=== PATIENT | male | born 1985 | race Two or more races ===

== ENCOUNTER 2021-11-03 09:57 | Inpatient (IN) | payer BC ==
[2021-11-03 10:32] LABS: Basophils # (A) 0.1 k/uL (0-0.2); Basophils % (A) 0 %; Eosinophils # (A) 0.1 k/uL (0-0.7); Eosinophils % (A) 1 %; HCT 45.9 % (39.0-53.0); HGB 16.2 gm/dL (13.0-17.5); Lymphocytes # (A) 1.3 k/uL (1.0-4.8); Lymphocytes % (A) 6 %; MCH 30.7 pg (25.0-35.0); MCHC 35.4 g/dL (31.0-37.0); MCV 86.9 fL (80.0-100.0); Mean Platelet Volume 7.4; Monocytes # (A) 1.5 k/uL (0-1.0); Monocytes % (A) 7 %; Neutrophils # (A) 18.3 k/uL (1.3-7.7); Neutrophils % (A) 86 %; Platelet Count 298 k/uL (150-450); RBC 5.28 m/uL (4.30-5.90); RDW 11.7 % (11.5-15.5); WBC 21.4 k/uL (3.8-10.6)
--- NOTE | 2021-11-03 10:33 | ED ---
Abdominal Pain HPI - General Chief Complaint: Abdominal Pain Stated Complaint: Lower Rt Abd Pain Time Seen by Provider: 11/03/21 10:01 Source: patient, RN notes reviewed Mode of arrival: EMS Limitations: no limitations - History of Present Illness Initial Comments: This a 36-year-old male presents emergency department with chief complaint of right lower quadrant abdominal pain. Patient states pain started last have gradually worsened. Patient states does radiate to his side and down. No dysuria no hematuria. No history kidney stones and in no prior abdominal surgeries slight nausea no vomiting diarrhea constipation. - Related Data Home Medications Medication Instructions Recorded Confirmed Acetaminophen Tab [Tylenol Tab] 1,000 mg PO Q6HR PRN 11/03/21 11/03/21 Allergies Allergy/AdvReac Type Severity Reaction Status Date / Time Milk Containing Products AdvReac Nausea & Verified 11/03/21 11:39 [Dairy] Vomiting & Diarrhea Review of Systems ROS Statement: Those systems with pertinent positive or pertinent negative responses have been documented in the HPI. ROS Other: All systems not noted in ROS Statement are negative. Past Medical History Past Medical History: No Reported History History of Any Multi-Drug Resistant Organisms: None Reported Past Surgical History: No Surgical Hx Reported Smoking Status: Never smoker Past Alcohol Use History: Occasional Past Drug Use History: None Reported General Exam Limitations: no limitations General appearance: alert, in no apparent distress Head exam: Present: atraumatic, normocephalic, normal inspection Neck exam: Present: normal inspection. Absent: tenderness, meningismus, lymphadenopathy Respiratory exam: Present: normal lung sounds bilaterally. Absent: respiratory distress, wheezes, rales, rhonchi, stridor Cardiovascular Exam: Present: regular rate, normal rhythm, normal heart sounds. Absent: systolic murmur, diastolic murmur, rubs, gallop, clicks GI/Abdominal exam: Present: soft, tenderness (Right lower quadrant), normal bowel sounds. Absent: distended, guarding, rebound, rigid Back exam: Absent: CVA tenderness (R), CVA tenderness (L) Neurological exam: Present: alert Skin exam: Present: warm, dry, intact, normal color. Absent: rash Course Vital Signs 11/03/21 10:01 Temperature 98.2 F Pulse Rate 70 Respiratory 18 Rate Blood Pressure 108/67 O2 Sat by Pulse 100 Oximetry Medical Decision Making - Medical Decision Making Patient has acute appendicitis. Patient was started on Zosyn patient will be admitted to Dr. Palmer - Lab Data Result diagrams: 11/03/21 10:20 11/03/21 10:20 Lab Results 11/03/21 11/03/21 11/03/21 Range/Units 10:20 10:20 10:20 WBC 21.4 H (3.8-10.6) k/uL RBC 5.28 (4.30-5.90) m/uL Hgb 16.2 (13.0-17.5) gm/dL Hct 45.9 (39.0-53.0) % MCV 86.9 (80.0-100.0) fL MCH 30.7 (25.0-35.0) pg MCHC 35.4 (31.0-37.0) g/dL RDW 11.7 (11.5-15.5) % Plt Count 298 (150-450) k/uL MPV 7.4 Neutrophils % 86 % Lymphocytes % 6 % Monocytes % 7 % Eosinophils % 1 % Basophils % 0 % Neutrophils # 18.3 H (1.3-7.7) k/uL Lymphocytes # 1.3 (1.0-4.8) k/uL Monocytes # 1.5 H (0-1.0) k/uL Eosinophils # 0.1 (0-0.7) k/uL Basophils # 0.1 (0-0.2) k/uL Sodium 138 (137-145) mmol/L Potassium 4.0 (3.5-5.1) mmol/L Chloride 102 (98-107) mmol/L Carbon Dioxide 23 (22-30) mmol/L Anion Gap 13 mmol/L BUN 17 (9-20) mg/dL Creatinine 0.91 (0.66-1.25) mg/dL Est GFR (CKD-EPI)AfAm >90 (>60 ml/min/1.73 sqM) Est GFR (CKD-EPI)NonAf >90 (>60 ml/min/1.73 sqM) Glucose 163 H (74-99) mg/dL Lactic Ac Sepsis Rflx Plasma Lactic Acid Anastacio 2.3 H* (0.7-2.0) mmol/L Calcium 9.5 (8.4-10.2) mg/dL Total Bilirubin 1.0 (0.2-1.3) mg/dL AST 27 (17-59) U/L ALT 36 (4-49) U/L Alkaline Phosphatase 80 (38-126) U/L Total Protein 8.0 (6.3-8.2) g/dL Albumin 4.7 (3.5-5.0) g/dL Amylase 54 (30-110) U/L Lipase 31 (23-300) U/L 11/03/21 Range/Units 10:47 WBC (3.8-10.6) k/uL RBC (4.30-5.90) m/uL Hgb (13.0-17.5) gm/dL Hct (39.0-53.0) % MCV (80.0-100.0) fL MCH (25.0-35.0) pg MCHC (31.0-37.0) g/dL RDW (11.5-15.5) % Plt Count (150-450) k/uL MPV Neutrophils % % Lymphocytes % % Monocytes % % Eosinophils % % Basophils % % Neutrophils # (1.3-7.7) k/uL Lymphocytes # (1.0-4.8) k/uL Monocytes # (0-1.0) k/uL Eosinophils # (0-0.7) k/uL Basophils # (0-0.2) k/uL Sodium (137-145) mmol/L Potassium (3.5-5.1) mmol/L Chloride (98-107) mmol/L Carbon Dioxide (22-30) mmol/L Anion Gap mmol/L BUN (9-20) mg/dL Creatinine (0.66-1.25) mg/dL Est GFR (CKD-EPI)AfAm (>60 ml/min/1.73 sqM) Est GFR (CKD-EPI)NonAf (>60 ml/min/1.73 sqM) Glucose (74-99) mg/dL Lactic Ac Sepsis Rflx Y Plasma Lactic Acid Anastacio (0.7-2.0) mmol/L Calcium (8.4-10.2) mg/dL Total Bilirubin (0.2-1.3) mg/dL AST (17-59) U/L ALT (4-49) U/L Alkaline Phosphatase (38-126) U/L Total Protein (6.3-8.2) g/dL Albumin (3.5-5.0) g/dL Amylase (30-110) U/L Lipase (23-300) U/L Disposition Clinical Impression: Acute appendicitis Disposition: ADMITTED IP TO THIS HOSP Condition: Fair Referrals: None,Stated [Primary Care Provider] - 1-2 days
[2021-11-03 10:39] LABS: ALT 36 U/L (4-49); AST 27 U/L (17-59); African American GFR (CKD) >90 (>60 ml/min/1.73 sqM); Albumin 4.7 g/dL (3.5-5.0); Alkaline Phosphatase 80 U/L (38-126); Amylase 54 U/L (30-110); Anion Gap 13 mmol/L; Blood Urea Nitrogen 17 mg/dL (9-20); Calcium 9.5 mg/dL (8.4-10.2); Carbon Dioxide 23 mmol/L (22-30); Chloride 102 mmol/L (98-107); Glucose 163 mg/dL (74-99); Lipase 31 U/L (23-300); Non-African American GFR(CKD) >90 (>60 ml/min/1.73 sqM); Sodium 138 mmol/L (137-145)
[2021-11-03] MEDS ORDERED: HYDROmorphone 0.5 MG/0.5 ML SYRINGE IVP STA ×2 (10:58→12:53)
[2021-11-03] MEDS ORDERED: ONDANSETRON 4 MG/2 ML VIAL IVP STA (10:58)
--- NOTE | 2021-11-03 12:27 | CT ---
EXAMINATION TYPE: CT abdomen pelvis w con DATE OF EXAM: 11/03/2021 COMPARISON: HISTORY: Lowert right abdomen pain CT DLP: 1235.9 mGycm CONTRAST: CT scan of the abdomen and pelvis is performed without Oral Contrast and with IV Contrast, patient in jected with 100 ml mL of Isovue 300. FINDINGS: LUNG BASES-: No visible nodule. No infiltrate. LIVER/GB: No calcified gallstones. No space occupying hepatic lesion. Biliary tree is of normal ca liber. PANCREAS: No inflammation. No distinct mass. SPLEEN: No splenic enlargement. No lesion seen. ADRENALS: No nodule. No thickening. KIDNEYS/BLADDER: No hydronephrosis. No nephrolithiasis. No distinct renal mass. Urinary bladder g rossly unremarkable. BOWEL: There is thickening of the appendix with the appendicoliths noted. There is surrounding inflam matory change without rupture or abscess. The findings are compatible with acute appendicitis. Mild r eactive small bowel ileus noted. No evidence for free air. Large bowel is otherwise of normal caliber . GENITAL ORGANS: No gross abnormality. LYMPH NODES: No greater than 1cm abdominal or pelvic lymph nodes are appreciated. AORTA: No significant abnormality. OSSEOUS STRUCTURES: No significant abnormality is seen. OTHER: No significant additional abnormality is seen. IMPRESSION: 1. Uncomplicated acute appendicitis.
[2021-11-03] MEDS ORDERED: PIPERACILLIN-TAZOBACTAM 3.375 GM in SODIUM CHLORIDE 0.9% 100 ML IVPB STA (12:53)
[2021-11-03] MEDS ORDERED: NALOXONE 0.4 MG/ML 1 ML VIAL IV PRN ×2 (12:55→17:05)
[2021-11-03] MEDS ORDERED: ONDANSETRON 4 MG/2 ML VIAL IVP PRN ×2 (12:55→17:05)
[2021-11-03] MEDS ORDERED: ACETAMINOPHEN IV (For NPO) 1,000 MG in EMPTY BAG 1 BAG IVPB STA (13:01)
[2021-11-03] MEDS: SODIUM CHLORIDE 0.9% 1,000 ML IV SCH (13:11)
--- NOTE | 2021-11-03 16:29 | P.GSHP ---
History of Present Illness H&P Date: 11/03/21 Chief Complaint: Right lower quadrant pain This is a 36-year-old male with complaints of right lower quadrant abdominal pain. Patient's emergency room evidence acute appendicitis. Past Medical History Past Medical History: No Reported History History of Any Multi-Drug Resistant Organisms: None Reported Past Surgical History: No Surgical Hx Reported Smoking Status: Never smoker Past Alcohol Use History: Occasional Past Drug Use History: None Reported Medications and Allergies Home Medications Medication Instructions Recorded Confirmed Type Acetaminophen Tab [Tylenol Tab] 1,000 mg PO Q6HR PRN 11/03/21 11/03/21 History Allergies Allergy/AdvReac Type Severity Reaction Status Date / Time Milk Containing Products AdvReac Nausea & Verified 11/03/21 11:39 [Dairy] Vomiting & Diarrhea Surgical - Exam Vital Signs Temp Pulse Resp BP Pulse Ox 98.2 F 70 18 108/67 100 11/03/21 10:01 11/03/21 10:01 11/03/21 10:01 11/03/21 10:01 11/03/21 10:01 - General well developed, well nourished, no distress - Eyes PERRL - ENT normal pinna - Neck no masses - Respiratory normal expansion - Cardiovascular Rhythm: regular - Abdomen Marked tenderness right lower quadrant Abdomen: soft Results - Labs 11/03/21 10:20 11/03/21 10:20 Abnormal Lab Results - Last 24 Hours (Table) 11/03/21 11/03/21 11/03/21 Range/Units 10:20 10:20 10:20 WBC 21.4 H (3.8-10.6) k/uL Neutrophils # 18.3 H (1.3-7.7) k/uL Monocytes # 1.5 H (0-1.0) k/uL Glucose 163 H (74-99) mg/dL Plasma Lactic Acid Anastacio 2.3 H* (0.7-2.0) mmol/L 11/03/21 Range/Units 12:58 WBC (3.8-10.6) k/uL Neutrophils # (1.3-7.7) k/uL Monocytes # (0-1.0) k/uL Glucose (74-99) mg/dL Plasma Lactic Acid Anastacio 2.7 H* (0.7-2.0) mmol/L Diabetes panel 11/03/21 Range/Units 10:20 Sodium 138 (137-145) mmol/L Potassium 4.0 (3.5-5.1) mmol/L Chloride 102 (98-107) mmol/L Carbon Dioxide 23 (22-30) mmol/L BUN 17 (9-20) mg/dL Creatinine 0.91 (0.66-1.25) mg/dL Glucose 163 H (74-99) mg/dL Calcium 9.5 (8.4-10.2) mg/dL AST 27 (17-59) U/L ALT 36 (4-49) U/L Alkaline Phosphatase 80 (38-126) U/L Total Protein 8.0 (6.3-8.2) g/dL Albumin 4.7 (3.5-5.0) g/dL Calcium panel 11/03/21 Range/Units 10:20 Calcium 9.5 (8.4-10.2) mg/dL Albumin 4.7 (3.5-5.0) g/dL Pituitary panel 11/03/21 Range/Units 10:20 Sodium 138 (137-145) mmol/L Potassium 4.0 (3.5-5.1) mmol/L Chloride 102 (98-107) mmol/L Carbon Dioxide 23 (22-30) mmol/L BUN 17 (9-20) mg/dL Creatinine 0.91 (0.66-1.25) mg/dL Glucose 163 H (74-99) mg/dL Calcium 9.5 (8.4-10.2) mg/dL Adrenal panel 11/03/21 Range/Units 10:20 Sodium 138 (137-145) mmol/L Potassium 4.0 (3.5-5.1) mmol/L Chloride 102 (98-107) mmol/L Carbon Dioxide 23 (22-30) mmol/L BUN 17 (9-20) mg/dL Creatinine 0.91 (0.66-1.25) mg/dL Glucose 163 H (74-99) mg/dL Calcium 9.5 (8.4-10.2) mg/dL Total Bilirubin 1.0 (0.2-1.3) mg/dL AST 27 (17-59) U/L ALT 36 (4-49) U/L Alkaline Phosphatase 80 (38-126) U/L Total Protein 8.0 (6.3-8.2) g/dL Albumin 4.7 (3.5-5.0) g/dL Assessment and Plan Assessment: Acute appendicitis. We'll perform laparoscopic appendectomy
[2021-11-03] MEDS ORDERED: KETOROLAC 15 MG/ML 1 ML VIAL ONE (16:30)
[2021-11-03] MEDS ORDERED: GLYCOPYRROLATE 0.2 MG/ML 2 ML VIAL ONE (16:30)
[2021-11-03] MEDS ORDERED: fentaNYL (PF) 50 MCG/ML 2 ML AMP ONE (16:30)
[2021-11-03] MEDS ORDERED: ONDANSETRON 4 MG/2 ML VIAL ONE (16:30)
[2021-11-03] MEDS ORDERED: IV FLUID CONTINUATION 1,000 ML IV ONE (16:30)
[2021-11-03] MEDS ORDERED: PROPOFOL 10 MG/ML 20 ML VIAL IV ONE (16:30)
[2021-11-03] MEDS ORDERED: MIDAZOLAM 2 MG/2 ML VIAL ONE (16:30)
[2021-11-03] MEDS ORDERED: SUCCINYLCHOLINE CHLORIDE 100 MG/5 ML SYR IV ONE (16:30)
[2021-11-03] MEDS ORDERED: LIDOCAINE 1% INJ 10MG/ML (20 ML MDV) ONE (16:30)
[2021-11-03] MEDS ORDERED: NEOSTIGMINE 1 MG/ML 10 ML VIAL ONE (16:30)
[2021-11-03] MEDS ORDERED: ROCURONIUM 10 MG/ML (5 ML VIAL) IV ONE (16:30)
[2021-11-03] MEDS ORDERED: DEXAMETHASONE SOD PHOSPHATE 10 MG/ML 1 ML VIAL ONE (16:30)
[2021-11-03] MEDS ORDERED: BUPIVACAIN-EPI 0.25%-1:200,000 30 ML VIAL SQ ONE ×2 (16:41→16:49)
[2021-11-03] MEDS ORDERED: LACTATED RINGERS 1,000 ML IV ONE (17:00)
[2021-11-03] MEDS ORDERED: Acetaminophen-Codeine 300-30mg TAB PO PRN (17:05)
[2021-11-03] MEDS ORDERED: traMADol 50 MG TAB PO PRN (17:05)
--- NOTE | 2021-11-03 17:05 | P.OP ---
Date of Procedure: 11/03/21 Preoperative Diagnosis: Acute appendicitis Postoperative Diagnosis: Acute appendicitis Procedure(s) Performed: Laparoscopic appendectomy Anesthesia: ELISA Surgeon: Armando Handley Estimated Blood Loss (ml): 5 Pathology: other (Appendix) Condition: stable Disposition: PACU Description of Procedure: The patient's placed on the operating table in the supine position. The patient received general anesthesia. The abdomen was prepped and draped in the usual sterile fashion. The skin was anesthetized 1% local Xylocaine at the trocar sites. Using an 11 blade the skin was incised at the umbilicus. The umbilicus was grasped with a Mangham clamp and then a Veress needle was placed into the peritoneal cavity. Position of the Veress needle was confirmed with positive drop test. After adequate insufflation a 5 mm trocar was placed into the peritoneal cavity. The abdomen was further insufflated. And then the laparoscope was placed in the peritoneal cavity. Next a 5 mm trocar was placed in the midline suprapubic position. And then a 10 mm trocar was placed in the midline epigastric position. The patient was rotated with the right side up and in Trendelenburg. The appendix was visualized. The appendix appeared to be inflamed. The appendix was grasped and then using the Harmonic scissors the mesoappendix was divided. A PDS Endoloop was then placed around the base of the appendix. And then the appendix was divided using Harmonic scissors. The appendix was placed into an Endo Catch and brought out through the 10 mm trocar site. The abdomen was irrigated. There is no bleeding seen. The trochars withdrawn. The skin was closed interrupted 3-0 Monocryl suture. Dermabond dressing was applied. Patient was sent to recovery room in stable condition.
[2021-11-03] MEDS: PIPERACILLIN-TAZOBACTAM 3.375 GM in SODIUM CHLORIDE 0.9% 100 ML IVPB SCH (21:21)
[2021-11-03] MEDS: KETOROLAC 30 MG/ML 1 ML VIAL IVP SCH (21:22)
[2021-11-04] MEDS: SODIUM CHLORIDE 0.9% 1,000 ML IV SCH ×2 (01:11→06:01)
[2021-11-04] MEDS: D5-0.45% NACL WITH KCL 20MEQ/L 1,000 ML IV SCH ×3 (01:11→09:56)
[2021-11-04] MEDS: KETOROLAC 30 MG/ML 1 ML VIAL IVP SCH ×4 (01:13→18:51)
[2021-11-04] MEDS: HYDROmorphone 0.5 MG/0.5 ML SYRINGE IVP PRN ×3 (02:25→16:08)
[2021-11-04] MEDS: PIPERACILLIN-TAZOBACTAM 3.375 GM in SODIUM CHLORIDE 0.9% 100 ML IVPB SCH ×3 (05:05→22:11)
[2021-11-04 06:56] LABS: Basophils % (A) 0 %; Eosinophils % (A) 0 %; HCT 45.2 % (39.0-53.0); HGB 15.5 gm/dL (13.0-17.5); Lymphocytes # (A) 1.1 k/uL (1.0-4.8); Lymphocytes % (A) 6 %; MCH 30.3 pg (25.0-35.0); MCHC 34.3 g/dL (31.0-37.0); MCV 88.5 fL (80.0-100.0); Mean Platelet Volume 7.4; Monocytes # (A) 0.8 k/uL (0-1.0); Monocytes % (A) 4 %; Neutrophils # (A) 16.9 k/uL (1.3-7.7); Neutrophils % (A) 89 %; Platelet Count 300 k/uL (150-450); RDW 11.8 % (11.5-15.5)
[2021-11-04] MEDS: ENOXAPARIN 40 MG/0.4 ML SYRINGE SQ SCH (09:56)
--- NOTE | 2021-11-04 11:37 | P.CONS ---
History of Present Illness - Reason for Consult lEUKOCYTOSI - History of Present Illness Patient is a pleasant 36-year-old male's of right lower quadrant abdominal pain is severe along with nausea without any vomiting found to have a appendicitis underwent emergent appendectomy found to have significant purulence patient is presently on antibiotics patient does have leukocytosis patient did pass gas didn't yet patient's abdomen is bit distended patient is an bleeding the hallways pain is fairly well controlled. Did have an episode of vomiting today. REVIEW OF SYSTEMS: CONSTITUTIONAL: No fever, no malaise, no fatigue. HEENT: No recent visual problems or hearing problems. Denied any sore throat. CARDIOVASCULAR: No chest pain, orthopnea, PND, no palpitations, no syncope. PULMONARY: No shortness of breath, no cough, no hemoptysis. GASTROINTESTINAL: As mentioned in HPI NEUROLOGICAL: No headaches, no weakness, no numbness. HEMATOLOGICAL: Denies any bleeding or petechiae. GENITOURINARY: Denies any burning micturition, frequency, or urgency. MUSCULOSKELETAL/RHEUMATOLOGICAL: Denies any joint pain, swelling, or any muscle pain. ENDOCRINE: Denies any polyuria or polydipsia. The rest of the 14-point review of systems is negative. PHYSICAL EXAMINATION: GENERAL: The patient is alert and oriented x3, not in any acute distress. Well developed, well nourished. HEENT: Pupils are round and equally reacting to light. EOMI. No scleral icterus. No conjunctival pallor. Normocephalic, atraumatic. No pharyngeal erythema. No thyromegaly. CARDIOVASCULAR: S1 and S2 present. No murmurs, rubs, or gallops. PULMONARY: Chest is clear to auscultation, no wheezing or crackles. ABDOMEN: Distended sluggish bowel sounds tympanic No palpable organomegaly. MUSCULOSKELETAL: No joint swelling or deformity. EXTREMITIES: No cyanosis, clubbing, or pedal edema. NEUROLOGICAL: Gross neurological examination did not reveal any focal deficits. SKIN: No rashes. Assessment and plan LEULOCYTOSIS: Secondary to appendicitis patient is on Zosyn which can be continued and is an appropriate antibiotic -Acute appendicitis patient is status post appendectomy Doesn't have any other major medical problems continue with antibiotics for now. DVT prophylaxis: As per primary service and not require any DVT prophylaxis as patient examining well Past Medical History Past Medical History: No Reported History History of Any Multi-Drug Resistant Organisms: None Reported Past Surgical History: No Surgical Hx Reported Smoking Status: Never smoker Past Alcohol Use History: Occasional Past Drug Use History: None Reported - Past Family History Father Family Medical History: No Reported History Mother Family Medical History: No Reported History Medications and Allergies Home Medications Medication Instructions Recorded Confirmed Type Acetaminophen Tab [Tylenol Tab] 1,000 mg PO Q6HR PRN 11/03/21 11/03/21 History Allergies Allergy/AdvReac Type Severity Reaction Status Date / Time Milk Containing Products AdvReac Nausea & Verified 11/03/21 18:51 [Dairy] Vomiting & Diarrhea Physical Exam Vitals: Vital Signs Temp Pulse Pulse Pulse Resp BP BP 11/04/21 08:20 97.5 F L 73 18 11/04/21 02:00 98.6 F 69 16 122/83 11/03/21 19:20 88 16 118/75 11/03/21 19:10 87 16 124/80 11/03/21 18:56 95 16 124/83 11/03/21 18:40 92 16 121/84 11/03/21 18:11 98.3 F 95 16 114/76 11/03/21 17:51 88 18 11/03/21 17:36 89 18 11/03/21 17:21 98.9 F 92 18 11/03/21 14:00 87 16 127/75 11/03/21 13:00 99.1 F 89 16 127/83 11/03/21 12:45 93 16 127/80 BP Pulse Ox 11/04/21 08:20 155/88 97 11/04/21 02:00 96 11/03/21 19:20 98 11/03/21 19:10 98 11/03/21 18:56 98 11/03/21 18:40 95 11/03/21 18:11 94 L 11/03/21 17:51 110/62 92 L 11/03/21 17:36 112/66 96 11/03/21 17:21 113/67 99 11/03/21 14:00 96 11/03/21 13:00 98 11/03/21 12:45 99 Intake and Output 11/03/21 11/04/21 11/04/21 22:59 06:59 14:59 Intake Total 1100 Output Total 5 Balance 1095 Intake: IV 1100 Output: Estimated Blood Loss 5 Other: # Voids 1 Results CBC & Chem 7: 11/04/21 06:30 11/03/21 10:20 Labs: Abnormal Lab Results - Last 24 Hours (Table) 11/03/21 11/03/21 11/04/21 Range/Units 12:58 19:01 06:30 WBC 19.0 H (3.8-10.6) k/uL Neutrophils # 16.9 H (1.3-7.7) k/uL Plasma Lactic Acid Anastacio 2.7 H* 2.2 H* (0.7-2.0) mmol/L
[2021-11-04] MEDS ORDERED: ASPIRIN-ACET-CAFF 250-250-65MG 1 EACH TAB PO PRN (11:50)
[2021-11-04] MEDS: SIMETHICONE 80 MG CHEWABLE PO SCH ×3 (12:43→22:10)
[2021-11-04] MEDS: METOCLOPRAMIDE 5 MG/ML 2 ML VIAL IVP SCH ×2 (13:33→18:53)
--- NOTE | 2021-11-04 15:05 | P.PN ---
Subjective Progress Note Date: 11/04/21 CHIEF COMPLAINT: Acute appendicitis HISTORY OF PRESENT ILLNESS: Patient is status post laparoscopic appendectomy. Patient complaining of abdominal pain and bloating. Pain is less than admission pain. He still has not had any flatus or bowel movement. He did have one emesis this morning that was dark brownish in color. Afebrile. WBC 21.4 down to 19. Hemoglobin 15.5 Currently on a clear liquid diet PHYSICAL EXAM: VITAL SIGNS: Reviewed. GENERAL: Well-developed in no acute distress. HEENT: No sclera icterus. Extraocular movements grossly intact. Moist buccal mucosa. Head is atraumatic, normocephalic. ABDOMEN: Soft. Distended. Diffuse tenderness with palpation. Incision sites clean dry and intact. NEUROLOGIC: Alert and oriented. Cranial nerves II through XII grossly intact. ASSESSMENT: 1. Acute appendicitis status post laparoscopic appendectomy 2. Postoperative ileus, unexpected but probable PLAN: -Downgraded diet nothing by mouth except for ice chips -Encourage patient to ambulate -Mylicon chews ordered -Continue antibiotics -Continue IV fluids -Continue pain medication as needed -DVT prophylaxis Lovenox and GI prophylaxis Protonix Physician Wrapper Selector note has been reviewed by physician. Signing provider agrees with the documented findings, assessment, and plan of care. Objective - Vital Signs Vital signs: Vital Signs Temp 97.5 F L 11/04/21 08:20 Pulse 73 11/04/21 08:20 Resp 18 11/04/21 08:20 BP 155/88 11/04/21 08:20 Pulse Ox 97 11/04/21 08:20 Intake & Output 11/03/21 11/04/21 11/04/21 18:59 06:59 18:59 Intake Total 1100 Output Total 5 Balance 1095 Weight 95.254 kg Intake: IV 1100 Output: Estimated Blood Loss 5 Other: # Voids 1 1 - Labs CBC & Chem 7: 11/04/21 06:30 11/03/21 10:20 Labs: Abnormal Lab Results - Last 24 Hours (Table) 11/03/21 11/03/21 11/04/21 Range/Units 12:58 19:01 06:30 WBC 19.0 H (3.8-10.6) k/uL Neutrophils # 16.9 H (1.3-7.7) k/uL Plasma Lactic Acid Anastacio 2.7 H* 2.2 H* (0.7-2.0) mmol/L
[2021-11-04] MEDS: PANTOPRAZOLE 40 MG/10 ML VIAL IVP SCH (16:14)
--- NOTE | 2021-11-04 19:16 | XR ---
EXAMINATION TYPE: XR chest 1V portable DATE OF EXAM: 11/04/2021 COMPARISON: NONE HISTORY: Tube placed TECHNIQUE: 2 views FINDINGS: There is no heart failure. There is some linear density left lung base. There is poor inspi ration. Heart size is fairly normal. There are no hilar masses. There is nasogastric tube in the rafia abhinav fundus. IMPRESSION: There is mild subsegmental atelectasis left lung base. NG tube is in the stomach.
[2021-11-04] MEDS ORDERED: TEMAZEPAM 15 MG CAP PO PRN (23:21)
[2021-11-05] MEDS: KETOROLAC 30 MG/ML 1 ML VIAL IVP SCH ×3 (00:51→12:00)
[2021-11-05] MEDS: METOCLOPRAMIDE 5 MG/ML 2 ML VIAL IVP SCH ×3 (00:51→12:00)
[2021-11-05] MEDS: D5-0.45% NACL WITH KCL 20MEQ/L 1,000 ML IV SCH ×3 (03:48→21:45)
[2021-11-05] MEDS: PIPERACILLIN-TAZOBACTAM 3.375 GM in SODIUM CHLORIDE 0.9% 100 ML IVPB SCH ×4 (03:52→21:41)
[2021-11-05] MEDS: ENOXAPARIN 40 MG/0.4 ML SYRINGE SQ SCH (09:24)
[2021-11-05] MEDS: SIMETHICONE 80 MG CHEWABLE PO SCH ×4 (09:24→21:41)
[2021-11-05] MEDS: PANTOPRAZOLE 40 MG/10 ML VIAL IVP SCH (09:24)
[2021-11-05 09:54] LABS: Basophils % (A) 0 %; Eosinophils % (A) 0 %; HCT 44.1 % (39.0-53.0); HGB 15.1 gm/dL (13.0-17.5); Lymphocytes # (A) 1.2 k/uL (1.0-4.8); Lymphocytes % (A) 7 %; MCH 30.8 pg (25.0-35.0); MCHC 34.1 g/dL (31.0-37.0); MCV 90.4 fL (80.0-100.0); Mean Platelet Volume 7.3; Monocytes # (A) 0.8 k/uL (0-1.0); Monocytes % (A) 5 %; Neutrophils # (A) 14.1 k/uL (1.3-7.7); Neutrophils % (A) 86 %; Platelet Count 325 k/uL (150-450); RBC 4.88 m/uL (4.30-5.90); RDW 12.5 % (11.5-15.5); WBC 16.4 k/uL (3.8-10.6)
--- NOTE | 2021-11-05 13:44 | P.PN ---
Subjective Progress Note Date: 11/05/21 CHIEF COMPLAINT: Acute appendicitis HISTORY OF PRESENT ILLNESS: Patient is status post laparoscopic appendectomy. Patient is being treated for postoperative ileus. NG tube unable to be placed yesterday. Patient had a few episodes of vomiting yesterday. That has now resolved. He has started to have several liquidy bowel movements. Reglan has been discontinued. His overall pain has shown improvement. Afebrile. WBC trending down from 19-16.4 PHYSICAL EXAM: VITAL SIGNS: Reviewed. GENERAL: Well-developed in no acute distress. HEENT: No sclera icterus. Extraocular movements grossly intact. Moist buccal mucosa. Head is atraumatic, normocephalic. ABDOMEN: Soft. Distended. Diffuse tenderness with palpation. Incision sites clean dry and intact. NEUROLOGIC: Alert and oriented. Cranial nerves II through XII grossly intact. ASSESSMENT: 1. Acute appendicitis status post laparoscopic appendectomy 2. Postoperative ileus, unexpected but probable PLAN: -Start clear liquid diet -Discontinue Reglan -Encourage patient to ambulate -Mylicon chews ordered -Continue antibiotics -Continue IV fluids -Continue pain medication as needed -Possible discharge tomorrow if pain is controlled and tolerating diet. -DVT prophylaxis Lovenox and GI prophylaxis Protonix Physician Shag Truck Driver note has been reviewed by physician. Signing provider agrees with the documented findings, assessment, and plan of care. Objective - Vital Signs Vital signs: Vital Signs Temp 98.8 F 11/05/21 08:10 Pulse 80 11/05/21 08:10 Resp 16 11/05/21 08:10 BP 136/85 11/05/21 08:10 Pulse Ox 98 11/05/21 08:10 Intake & Output 11/04/21 11/05/21 11/05/21 18:59 06:59 18:59 Other: Voiding Method Toilet # Voids 2 2 # Bowel Movements 6 - Labs CBC & Chem 7: 11/05/21 08:56 11/03/21 10:20 Labs: Abnormal Lab Results - Last 24 Hours (Table) 11/05/21 Range/Units 08:56 WBC 16.4 H (3.8-10.6) k/uL Neutrophils # 14.1 H (1.3-7.7) k/uL
[2021-11-05] MEDS: HYDROcodone/APAP 5-325MG 1 EACH TAB PO PRN ×2 (14:16→20:35)
--- NOTE | 2021-11-05 15:39 | P.PN ---
Subjective Progress Note Date: 11/05/21 - Reason for Consult Leukocytosis - History of Present Illness Patient is a pleasant 36-year-old male's of right lower quadrant abdominal pain is severe along with nausea without any vomiting found to have a appendicitis underwent emergent appendectomy found to have significant purulence patient is presently on antibiotics patient does have leukocytosis patient did pass gas didn't yet patient's abdomen is bit distended patient is an bleeding the cantrell llways pain is fairly well controlled. Did have an episode of vomiting today. 11/05/2021 Patient is seen and evaluated in follow-up and continues to have some abdominal discomfort and states is passing gas and has had multiple bowel movements status post receiving Reglan and the bowel movements were loose. Patient is started on clear liquids and will monitor for tolerance along with increasing diet as tolerated per surgical recommendations. Patient is afebrile. Patient did have an episode of nausea and vomiting yesterday and none today. Patient has been up and walking the halls multiple times. Labs: White count Blood count trending down at 16.4, hemoglobin is 15.1, platelets are 325 Review of systems: Constitutional: No reports of fatigue, fever, or chills Cardiovascular: No reports of chest pain or palpitations Respiratory: No reports of shortness of breath or cough GI: reports occasional nausea with no reports of further vomiting or nausea noted today, reports passing gas and multiple loose stools : No reports of dysuria or retention Neurovascular: No reports of weakness or numbness All medications have been reviewed Active Medications Acetaminophen/Codeine Phosphate (Acetaminophen-Codeine 300-30mg Tab) 1 each PO Q4HR PRN PRN Reason: Pain Hydrocodone Bitart/Acetaminophen (Hydrocodone/Apap 5-325mg 1 Each Tab) 2 each PO Q6HR PRN PRN Reason: Moderate to Severe Pain Last Admin: 11/05/21 14:16 Dose: 2 each Documented by: Enoxaparin Sodium (Enoxaparin 40 Mg/0.4 Ml Syringe) 40 mg SQ DAILY [facility] Last Admin: 11/05/21 09:24 Dose: 40 mg Documented by: Hydromorphone HCl (Hydromorphone 0.5 Mg/0.5 Ml Syringe) 0.5 mg IVP Q3HR PRN PRN Reason: Moderate Pain Last Admin: 11/04/21 16:08 Dose: 0.5 mg Documented by: Potassium Chloride/Dextrose/Sod Cl (D5%-1/2ns-Kcl 20 Meq/L Iv Solution) 1,000 mls @ 100 mls/hr IV .Q10H [facility] Last Admin: 11/05/21 14:30 Dose: 100 mls/hr Documented by: Piperacillin Sod/Tazobactam (Sod 3.375 gm/ Sodium Chloride) 100 mls @ 25 mls/hr IVPB Q8H [facility] Last Admin: 11/05/21 12:33 Dose: 25 mls/hr Documented by: Ondansetron HCl (Ondansetron 4 Mg/2 Ml Vial) 4 mg IVP Q8HR PRN PRN Reason: Nausea And Vomiting Last Admin: 11/04/21 05:09 Dose: 4 mg Documented by: Ondansetron HCl (Ondansetron 4 Mg/2 Ml Vial) 4 mg IVP Q6HR PRN PRN Reason: Nausea And Vomiting Last Admin: 11/04/21 09:56 Dose: 4 mg Documented by: Pantoprazole Sodium (Pantoprazole 40 Mg/10 Ml Vial) 40 mg IVP DAILY [facility] Last Admin: 11/05/21 09:24 Dose: 40 mg Documented by: Simethicone (Simethicone 80 Mg Chewable) 80 mg PO QID [facility] Last Admin: 11/05/21 14:30 Dose: 80 mg Documented by: Temazepam (Temazepam 15 Mg Cap) 15 mg PO HS PRN PRN Reason: Insomnia Last Admin: 11/05/21 01:04 Dose: 15 mg Documented by: Tramadol HCl (Tramadol 50 Mg Tab) 50 mg PO Q6H PRN PRN Reason: Mild to Moderate Pain Last Admin: 11/05/21 11:11 Dose: 50 mg Documented by: PHYSICAL EXAMINATION: GENERAL: The patient is alert and oriented x3, not in any acute distress. Well developed, well nourished. HEENT: Pupils are round and equally reacting to light. EOMI. No scleral icterus. No conjunctival pallor. Normocephalic, atraumatic. No pharyngeal erythema. No thyromegaly. CARDIOVASCULAR: S1 and S2 present. No murmurs, rubs, or gallops. PULMONARY: Chest is clear to auscultation, no wheezing or crackles. ABDOMEN: Distended, sluggish bowel sounds noted, tympanic No palpable organomegaly. MUSCULOSKELETAL: No joint swelling or deformity. EXTREMITIES: No cyanosis, clubbing, or pedal edema. NEUROLOGICAL: Gross neurological examination did not reveal any focal deficits SKIN: No rashes. Assessment: -Leukocytosis secondary to appendicitis: Patient will be continued on IV antibiotics in the form of Zosyn and white blood count trending down and is currently 16.4 today, the labs ordered -Acute appendicitis patient is status post appendectomy -Possible ileus, and unexpected outcome of surgery -DVT prophylaxis: As per primary service and not require any DVT prophylaxis , encouraged increased ambulation -Full code Plan: Recommend continue with IV antibiotics in the form of Zosyn and monitor white blood count closely with repeat labs in the morning. Encouraged increase activity as tolerated and patient is being started on clear liquids and slowly advance as tolerated. Patient is having gas and multiple bowel movements with questionable ileus and surgical services monitoring closely. Recommend repeat labs in the morning with possible discharge in 24 hours. Will continue to follow along with surgery during hospitalization. Thank you for this consultation. Objective - Vital Signs Vital signs: Vital Signs Temp 98.8 F 11/05/21 08:10 Pulse 80 11/05/21 08:10 Resp 16 11/05/21 08:10 BP 136/85 11/05/21 08:10 Pulse Ox 98 11/05/21 08:10 Intake & Output 11/04/21 11/05/21 11/05/21 18:59 06:59 18:59 Other: Voiding Method Toilet # Voids 2 2 # Bowel Movements 6 - Labs CBC & Chem 7: 11/05/21 08:56 11/03/21 10:20 Labs: Abnormal Lab Results - Last 24 Hours (Table) 11/05/21 Range/Units 08:56 WBC 16.4 H (3.8-10.6) k/uL Neutrophils # 14.1 H (1.3-7.7) k/uL
[2021-11-06] MEDS: HYDROcodone/APAP 5-325MG 1 EACH TAB PO PRN (04:18)
[2021-11-06] MEDS: PIPERACILLIN-TAZOBACTAM 3.375 GM in SODIUM CHLORIDE 0.9% 100 ML IVPB SCH ×3 (04:18→19:50)
[2021-11-06] MEDS: D5-0.45% NACL WITH KCL 20MEQ/L 1,000 ML IV SCH ×2 (04:19→19:51)
[2021-11-06] MEDS: PANTOPRAZOLE 40 MG/10 ML VIAL IVP SCH (08:38)
[2021-11-06] MEDS: SIMETHICONE 80 MG CHEWABLE PO SCH ×4 (08:39→21:04)
[2021-11-06] MEDS: ENOXAPARIN 40 MG/0.4 ML SYRINGE SQ SCH (08:39)
[2021-11-06 09:00] LABS: Basophils % (A) 0 %; Eosinophils # (A) 0.2 k/uL (0-0.7); Eosinophils % (A) 1 %; HCT 43.5 % (39.0-53.0); HGB 14.2 gm/dL (13.0-17.5); Lymphocytes # (A) 1.3 k/uL (1.0-4.8); Lymphocytes % (A) 10 %; MCH 30.9 pg (25.0-35.0); MCHC 32.7 g/dL (31.0-37.0); MCV 94.3 fL (80.0-100.0); Mean Platelet Volume 7.3; Monocytes # (A) 0.9 k/uL (0-1.0); Monocytes % (A) 7 %; Neutrophils % (A) 80 %; Platelet Count 337 k/uL (150-450); RBC 4.62 m/uL (4.30-5.90); RDW 11.8 % (11.5-15.5); WBC 13.7 k/uL (3.8-10.6)
[2021-11-06 09:07] LABS: African American GFR (CKD) >90 (>60 ml/min/1.73 sqM); Anion Gap 12 mmol/L; Blood Urea Nitrogen 22 mg/dL (9-20); Calcium 9.2 mg/dL (8.4-10.2); Carbon Dioxide 22 mmol/L (22-30); Chloride 105 mmol/L (98-107); Glucose 120 mg/dL (74-99); Non-African American GFR(CKD) >90 (>60 ml/min/1.73 sqM); Potassium 4.3 mmol/L (3.5-5.1); Sodium 139 mmol/L (137-145)
--- NOTE | 2021-11-06 14:45 | P.PN ---
Subjective Progress Note Date: 11/06/21 CHIEF COMPLAINT: Acute appendicitis HISTORY OF PRESENT ILLNESS: Patient is status post laparoscopic appendectomy. Patient is being treated for postoperative ileus. Patient is reporting that his pain is showing improvement. He has had multiple bowel movements. Denies any nausea or vomiting. Appetite is still diminished. Afebrile. WBC trending downwards at 13.7 PHYSICAL EXAM: VITAL SIGNS: Reviewed. GENERAL: Well-developed in no acute distress. HEENT: No sclera icterus. Extraocular movements grossly intact. Moist buccal mucosa. Head is atraumatic, normocephalic. ABDOMEN: Soft. Less tender with palpation. Decrease abdominal distention. Incision sites clean dry and intact. NEUROLOGIC: Alert and oriented. Cranial nerves II through XII grossly intact. ASSESSMENT: 1. Acute appendicitis status post laparoscopic appendectomy 2. Postoperative ileus, unexpected but probable PLAN: -Advance to full liquids -Encourage patient to ambulate -Mylicon chews -Continue antibiotics -Continue IV fluids -Continue pain medication as needed -Possible discharge tomorrow -DVT prophylaxis Lovenox and GI prophylaxis Protonix Physician Legal Biller note has been reviewed by physician. Signing provider agrees with the documented findings, assessment, and plan of care. Objective - Vital Signs Vital signs: Vital Signs Temp 98.7 F 11/06/21 14:13 Pulse 74 11/06/21 14:13 Resp 16 11/06/21 14:13 BP 127/88 11/06/21 14:13 Pulse Ox 97 11/06/21 14:13 Intake & Output 11/05/21 11/06/21 11/06/21 18:59 06:59 18:59 Other: Voiding Method Toilet Toilet # Voids 1 2 - Labs CBC & Chem 7: 11/06/21 08:28 11/06/21 08:28 Labs: Abnormal Lab Results - Last 24 Hours (Table) 11/06/21 11/06/21 Range/Units 08:28 08:28 WBC 13.7 H (3.8-10.6) k/uL Neutrophils # 11.0 H (1.3-7.7) k/uL BUN 22 H (9-20) mg/dL Glucose 120 H (74-99) mg/dL
--- NOTE | 2021-11-06 16:16 | P.PN ---
Subjective Progress Note Date: 11/06/21 - Reason for Consult Leukocytosis - History of Present Illness Patient is a pleasant 36-year-old male's of right lower quadrant abdominal pain is severe along with nausea without any vomiting found to have a appendicitis underwent emergent appendectomy found to have significant purulence patient is presently on antibiotics patient does have leukocytosis patient did pass gas didn't yet patient's abdomen is bit distended patient is an bleeding the cantrell llways pain is fairly well controlled. Did have an episode of vomiting today. 11/05/2021 Patient is seen and evaluated in follow-up and continues to have some abdominal discomfort and states is passing gas and has had multiple bowel movements status post receiving Reglan and the bowel movements were loose. Patient is started on clear liquids and will monitor for tolerance along with increasing diet as tolerated per surgical recommendations. Patient is afebrile. Patient did have an episode of nausea and vomiting yesterday and none today. Patient has been up and walking the halls multiple times. 11/06/2021 Patient is seen and evaluated today with no acute overnight issues. Patient is afebrile white blood count is trending down at 13.7, BMP within normal limits. Patient is maintained on IV antibiotics and will repeat labs. Patient continues to have mild abdominal tenderness at the incision site with occasional intermittent abdominal pain although no worse than yesterday. Patient is up multiple times walking the halls and reports to passing gas and continues to have bowel movements. Diet is being advanced to full liquids and will monitor for tolerance. Labs: WBC is 13.7, hemoglobin is working 0.3, platelets are 337, sodium is 139, potassium 4.3, creatinine 0.93, calcium is 9.2. Review of systems: Constitutional: No reports of fatigue, fever, or chills Cardiovascular: No reports of chest pain or palpitations Respiratory: No reports of shortness of breath or cough GI: no reports of nausea with no reports of further vomiting or nausea noted today, reports passing gas and having bowel movements : No reports of dysuria or retention Neurovascular: No reports of weakness or numbness All medications have been reviewed Active Medications Acetaminophen/Codeine Phosphate (Acetaminophen-Codeine 300-30mg Tab) 1 each PO Q4HR PRN PRN Reason: Pain Hydrocodone Bitart/Acetaminophen (Hydrocodone/Apap 5-325mg 1 Each Tab) 2 each PO Q6HR PRN PRN Reason: Moderate to Severe Pain Last Admin: 11/06/21 04:18 Dose: 2 each Documented by: Enoxaparin Sodium (Enoxaparin 40 Mg/0.4 Ml Syringe) 40 mg SQ DAILY [facility] Last Admin: 11/06/21 08:39 Dose: 40 mg Documented by: Hydromorphone HCl (Hydromorphone 0.5 Mg/0.5 Ml Syringe) 0.5 mg IVP Q3HR PRN PRN Reason: Moderate Pain Last Admin: 11/04/21 16:08 Dose: 0.5 mg Documented by: Potassium Chloride/Dextrose/Sod Cl (D5%-1/2ns-Kcl 20 Meq/L Iv Solution) 1,000 mls @ 100 mls/hr IV .Q10H [facility] Last Admin: 11/06/21 04:19 Dose: 100 mls/hr Documented by: Piperacillin Sod/Tazobactam (Sod 3.375 gm/ Sodium Chloride) 100 mls @ 25 mls/hr IVPB Q8H [facility] Last Admin: 11/06/21 13:16 Dose: 25 mls/hr Documented by: Ondansetron HCl (Ondansetron 4 Mg/2 Ml Vial) 4 mg IVP Q8HR PRN PRN Reason: Nausea And Vomiting Last Admin: 11/04/21 05:09 Dose: 4 mg Documented by: Ondansetron HCl (Ondansetron 4 Mg/2 Ml Vial) 4 mg IVP Q6HR PRN PRN Reason: Nausea And Vomiting Last Admin: 11/04/21 09:56 Dose: 4 mg Documented by: Pantoprazole Sodium (Pantoprazole 40 Mg/10 Ml Vial) 40 mg IVP DAILY [facility] Last Admin: 11/06/21 08:38 Dose: 40 mg Documented by: Simethicone (Simethicone 80 Mg Chewable) 80 mg PO QID [facility] Last Admin: 11/06/21 13:17 Dose: 80 mg Documented by: Temazepam (Temazepam 15 Mg Cap) 15 mg PO HS PRN PRN Reason: Insomnia Last Admin: 11/05/21 01:04 Dose: 15 mg Documented by: Tramadol HCl (Tramadol 50 Mg Tab) 50 mg PO Q6H PRN PRN Reason: Mild to Moderate Pain Last Admin: 11/05/21 11:11 Dose: 50 mg Documented by: PHYSICAL EXAMINATION: GENERAL: The patient is alert and oriented x3, not in any acute distress. Well developed, well nourished. HEENT: Pupils are round and equally reacting to light. EOMI. No scleral icterus. No conjunctival pallor. Normocephalic, atraumatic. No pharyngeal erythema. No thyromegaly. CARDIOVASCULAR: S1 and S2 present. No murmurs, rubs, or gallops. PULMONARY: Chest is clear to auscultation, no wheezing or crackles. ABDOMEN: Distended, bowel sounds noted, tympanic No palpable organomegaly. MUSCULOSKELETAL: No joint swelling or deformity. EXTREMITIES: No cyanosis, clubbing, or pedal edema. NEUROLOGICAL: Gross neurological examination did not reveal any focal deficits SKIN: No rashes. Assessment: -Leukocytosis secondary to appendicitis: Patient will be continued on IV antibiotics in the form of Zosyn and white blood count trending down and is currently 13.7 today, repeat labs ordered -Acute appendicitis patient is status post appendectomy -Possible ileus, and unexpected outcome of surgery -DVT prophylaxis: As per primary service and not require any DVT prophylaxis , encouraged increased ambulation -Full code Plan: Recommend continue with IV antibiotics in the form of Zosyn and monitor white blood count closely with repeat labs in the morning. Encouraged increase activity as tolerated and patient has tolerated on clear liquids and being advanced to full liquids for surgery. Patient is having gas and multiple bowel movements with questionable ileus and surgical services monitoring closely. Recommend repeat labs in the morning with possible discharge in 24 hours. Will continue to follow along with surgery during hospitalization. Thank you for this consultation. Objective - Vital Signs Vital signs: Vital Signs Temp 98.6 F 11/06/21 08:35 Pulse 81 11/06/21 08:35 Resp 14 11/06/21 08:35 BP 134/90 11/06/21 08:35 Pulse Ox 95 11/06/21 08:35 Intake & Output 11/05/21 11/06/21 11/06/21 18:59 06:59 18:59 Other: Voiding Method Toilet # Voids 1 2 - Labs CBC & Chem 7: 11/06/21 08:28 11/06/21 08:28 Labs: Abnormal Lab Results - Last 24 Hours (Table) 11/06/21 11/06/21 Range/Units 08:28 08:28 WBC 13.7 H (3.8-10.6) k/uL Neutrophils # 11.0 H (1.3-7.7) k/uL BUN 22 H (9-20) mg/dL Glucose 120 H (74-99) mg/dL
[2021-11-07] MEDS: PIPERACILLIN-TAZOBACTAM 3.375 GM in SODIUM CHLORIDE 0.9% 100 ML IVPB SCH (03:43)
[2021-11-07] MEDS: D5-0.45% NACL WITH KCL 20MEQ/L 1,000 ML IV SCH ×2 (03:43→08:25)
[2021-11-07 07:08] LABS: Basophils % (A) 0 %; Eosinophils # (A) 0.2 k/uL (0-0.7); Eosinophils % (A) 2 %; HGB 13.6 gm/dL (13.0-17.5); Lymphocytes # (A) 1.1 k/uL (1.0-4.8); Lymphocytes % (A) 11 %; MCH 30.9 pg (25.0-35.0); MCHC 32.5 g/dL (31.0-37.0); MCV 95.1 fL (80.0-100.0); Mean Platelet Volume 7.4; Monocytes # (A) 0.8 k/uL (0-1.0); Monocytes % (A) 8 %; Neutrophils # (A) 8.5 k/uL (1.3-7.7); Neutrophils % (A) 78 %; Platelet Count 323 k/uL (150-450); RBC 4.42 m/uL (4.30-5.90); RDW 11.8 % (11.5-15.5); WBC 10.9 k/uL (3.8-10.6)
[2021-11-07 08:25] VITALS: BP 122/87; PULSE 69; RESP 14; TEMP 98.7
[2021-11-07] MEDS: PANTOPRAZOLE 40 MG/10 ML VIAL IVP SCH (08:25)
[2021-11-07] MEDS: ENOXAPARIN 40 MG/0.4 ML SYRINGE SQ SCH (08:25)
[2021-11-07] MEDS: SIMETHICONE 80 MG CHEWABLE PO SCH (08:25)
--- NOTE | 2021-11-07 11:16 | P.DS ---
Providers Date of admission: 11/05/21 09:10 Expected date of discharge: 11/07/21 Attending physician: Armando Handley Consults: 11/03/21 17:05 Consult Physician Routine Consulting Provider: Nivia Barragan Consult Reason/Comments: Medical management Do you want consulting provider notified?: Yes Primary care physician: Stated None Hospital Course: Discharge diagnosis 1. Acute appendicitis status post laparoscopic appendectomy 2. Postoperative ileus, unexpected but probable Hospital course This is a 36-year-old male who presented with complaints of right lower quadrant abdominal pain and was found have evidence of acute appendicitis. He is status post laparoscopic appendectomy. He developed a postoperative ileus during his admission. Patient did receive Reglan to help with all his. Ileus did resolve. He is having bowel movements. Denies any nausea or vomiting. His pain is controlled. She is tolerating diet. He has been up and ambulating. He is afebrile. Patient is stable for discharge. Please refer to chart for any further details. Physician Diesel Scoop Operator note has been reviewed by physician. Signing provider agrees with the documented findings, assessment, and plan of care. Patient Condition at Discharge: Stable Plan - Discharge Summary New Discharge Prescriptions: New Levofloxacin [Levaquin] 500 mg PO DAILY 7 Days #7 tab HYDROcodone/APAP 5-325MG [[place] 5-325] 1 tab PO Q6HR PRN 3 Days #12 tab PRN Reason: Pain No Action Acetaminophen Tab [Tylenol Tab] 1,000 mg PO Q6HR PRN PRN Reason: Pain Or Fever > 100.5 Discharge Medication List Acetaminophen Tab [Tylenol Tab] 1,000 mg PO Q6HR PRN 11/03/21 [History] HYDROcodone/APAP 5-325MG [[place] 5-325] 1 tab PO Q6HR PRN 3 Days #12 tab 11/07/21 [Rx] Levofloxacin [Levaquin] 500 mg PO DAILY 7 Days #7 tab 11/07/21 [Rx] Follow up Appointment(s)/Referral(s): None,Stated [Primary Care Provider] - 1-2 days Armando Handley MD [STAFF PHYSICIAN] - 11/18/21 8:10 am (Office will mail out new patient paperwork, please fill out before appointment and bring with to appointment. ) Activity/Diet/Wound Care/Special Instructions: Advance diet as tolerated. Fluids are encouraged. No driving while taking [place] No lifting pushing pulling over 10 pounds You may shower. No soaking or tub baths, hot tubs or swimming for 2 weeks Very light activity until you are reevaluated at your follow up appointment with your surgeon. Call physician with any questions comments concerns worsening returning symptoms, not tolerating diet or fluids, pain not controlled with medications rx to you, fever. Discharge Disposition: HOME SELF-CARE
--- NOTE | 2021-11-07 15:01 | P.PN ---
Subjective Progress Note Date: 11/07/21 - Reason for Consult Leukocytosis - History of Present Illness Patient is a pleasant 36-year-old male's of right lower quadrant abdominal pain is severe along with nausea without any vomiting found to have a appendicitis underwent emergent appendectomy found to have significant purulence patient is presently on antibiotics patient does have leukocytosis patient did pass gas didn't yet patient's abdomen is bit distended patient is an bleeding the cantrell llways pain is fairly well controlled. Did have an episode of vomiting today. 11/05/2021 Patient is seen and evaluated in follow-up and continues to have some abdominal discomfort and states is passing gas and has had multiple bowel movements status post receiving Reglan and the bowel movements were loose. Patient is started on clear liquids and will monitor for tolerance along with increasing diet as tolerated per surgical recommendations. Patient is afebrile. Patient did have an episode of nausea and vomiting yesterday and none today. Patient has been up and walking the halls multiple times. 11/06/2021 Patient is seen and evaluated today with no acute overnight issues. Patient is afebrile white blood count is trending down at 13.7, BMP within normal limits. Patient is maintained on IV antibiotics and will repeat labs. Patient continues to have mild abdominal tenderness at the incision site with occasional intermittent abdominal pain although no worse than yesterday. Patient is up multiple times walking the halls and reports to passing gas and continues to have bowel movements. Diet is being advanced to full liquids and will monitor for tolerance. 11/07/2021 Patient is seen in follow-up this morning currently walking the halls multiple times. Patient is passing gas and having bowel movements and denies any worsening abdominal pain. Occasional minor discomfort at the surgical site with position changes otherwise no changes from previous. White blood count trending down and is 10.9 and patient is being discharged by surgical services today. Patient will continue on oral levaquin will follow-up in the outpatient setting with surgery. Resources provided for primary care establishment. She denies any chest pain, shortness of breath, or palpitations. Patient is afebrile. No reports of nausea or vomiting and patient is tolerating diet. Labs: WBC is 10.9, hemoglobin is 13.6, platelets are 323 Review of systems: Constitutional: No reports of fatigue, fever, or chills Cardiovascular: No reports of chest pain or palpitations Respiratory: No reports of shortness of breath or cough GI: no reports of nausea with no reports of further vomiting or nausea noted today, reports passing gas and having bowel movements : No reports of dysuria or retention Neurovascular: No reports of weakness or numbness All medications have been reviewed PHYSICAL EXAMINATION: GENERAL: The patient is alert and oriented x3, not in any acute distress. Well developed, well nourished. HEENT: Pupils are round and equally reacting to light. EOMI. No scleral icterus. No conjunctival pallor. Normocephalic, atraumatic. No pharyngeal erythema. No thyromegaly. CARDIOVASCULAR: S1 and S2 present. No murmurs, rubs, or gallops. PULMONARY: Chest is clear to auscultation, no wheezing or crackles. ABDOMEN: Distended, bowel sounds noted, No palpable organomegaly. MUSCULOSKELETAL: No joint swelling or deformity. EXTREMITIES: No cyanosis, clubbing, or pedal edema. NEUROLOGICAL: Gross neurological examination did not reveal any focal deficits SKIN: No rashes. Assessment: -Leukocytosis secondary to appendicitis, improving -Acute appendicitis patient is status post appendectomy -Possible ileus, and unexpected outcome of surgery, improved -DVT prophylaxis -Full code Plan: Recommend continue current medications and management. Patient has been tolerating diet with no further reports of nausea or vomiting and will be advanced slowly per surgery recommendations. Patient is passing gas and having bowel movements and denies any further abdominal pain. Patient remains afebrile and white blood count is trending down. Patient anticipates discharge this m orning by surgical services and will continue on oral Levaquin to complete the course. Discussed with the patient about establishing with primary care provider and patient will also follow-up with surgery as discussed and scheduled. Will continue to follow this patient during hospitalization and w wendi like to thank you for this consultation. Patient anticipates discharge today. Objective - Vital Signs Vital signs: Vital Signs Temp 98.7 F 11/07/21 07:48 Pulse 69 11/07/21 07:48 Resp 14 11/07/21 07:48 BP 122/87 11/07/21 07:48 Pulse Ox 98 11/07/21 07:48 Intake & Output 11/06/21 11/07/21 11/07/21 18:59 06:59 18:59 Intake Total 300 1480 Balance 300 1480 Intake: Intake, IV Titration 1000 Amount D5-0.45% NaCl with KCl 1000 20Meq/l 1,000 ml @ 100 mls/hr IV .Q10H [facility] Rx#: [id number] Oral 300 480 Other: Voiding Method Toilet # Voids 3 2 - Labs CBC & Chem 7: 11/07/21 06:33 11/06/21 08:28 Labs: Abnormal Lab Results - Last 24 Hours (Table) 11/07/21 Range/Units 06:33 WBC 10.9 H (3.8-10.6) k/uL Neutrophils # 8.5 H (1.3-7.7) k/uL
== END 2021-11-07 12:15 | disposition home or self-care (01) | DRG 342 ==
LOC: EC 09:57 → 6PED 12:55 → OBSVTOIN 11-05 09:10
PROVIDERS: ADMIT Surgery; ATTEND Surgery
PROC: 0DTJ4ZZ Resection of Appendix, Percutaneous Endoscopic Approach (ICD-10-PCS; principal; 2021-11-03 14:30)
DX: K91.89 Other postprocedural complications and disorders of digestive system (principal); K35.80 Unspecified acute appendicitis; K56.7 Ileus, unspecified; D72.829 Elevated white blood cell count, unspecified; R11.10 Vomiting, unspecified; Z20.822 Contact with and (suspected) exposure to COVID-19; Z91.011 Allergy to milk products
CPT/HCPCS: 36415; 71045; 74177; 80048; 80053; 82150; 83605; 83690; 85025; 87635; 88304; 96365; 96368; 96375; 96376; 99285